=== PATIENT | female | born 1945 | race Caucasian/White ===

== ENCOUNTER 2019-09-10 13:03 | Emergency (ER) | payer OTHER ==
[~2019-09-10] VITALS: Ht 160 cm; Wt 68.0 kg
[2019-09-10] MEDS ORDERED: GLIPIZIDE 10 MG10 MG PO (13:19)
[2019-09-10] MEDS ORDERED: LIPITOR 20 MG T20 M1 PO (13:19)
[2019-09-10 13:46] LABS: ABSOLUTE BASOPHILS 0.1 thou/uL (0.0-0.2); ABSOLUTE EOSINOPHILS 0.2 thou/uL (0.0-0.7); ABSOLUTE LYMPHOCYTES 1.7 thou/uL (0.8-5.3); ABSOLUTE MONOCYTES 0.7 thou/uL (0.0-1.2); BASOPHILS 1.4 %; EOSINOPHILS 2.4 %; HEMATOCRIT 41.6 % (37.0-47.0); HEMOGLOBIN 13.9 gm/dL (12.0-15.0); LYMPHOCYTES 22.5 %; MCH 29.6 pg (26.0-34.0); MCHC 33.4 g/dL (28.0-37.0); MCV 88.6 fL (80.0-100.0); MONOCYTES 8.9 %; MPV 8.9 fl. (7.2-11.1); NUCLEATED RBCS 0 /100WBC; PLATELET COUNT* 303 thou/uL (150-400); POLYS 64.8 %; RBC 4.69 mil/uL (4.20-5.00); RDW-CV 13.4 % (10.5-14.5); WBC 7.8 thou/uL (4.0-11.0)
[2019-09-10 13:54] LABS: CREATININE 1.1 mg/dL (0.6-1.3); POTASSIUM 4.2 mmol/L (3.5-5.1)
[2019-09-10 13:55] LABS: APTT 31.9 Seconds (25.0-31.3); PROTIME 10.2 Seconds (9.20-11.50)
[2019-09-10 13:56] LABS: URINE BILIRUBIN NEGATIVE (Negative); URINE BLOOD NEGATIVE (Negative); URINE CLARITY CLEAR; URINE COLOR YELLOW; URINE GLUCOSE-RANDOM 3+ (Negative); URINE KETONES TRACE (Negative); URINE LEUKOCYTES-REFLEX NEGATIVE (Negative); URINE NITRITE-REFLEX NEGATIVE (Negative); URINE PROTEIN NEGATIVE (Negative); URINE SPECIFIC GRAVITY 1.025 (1.005-1.030); URINE UROBILINOGEN 0.2 E.U./dl (0.2-1.0)
[2019-09-10 14:05] LABS: ALBUMIN 3.1 g/dL (3.4-5.0); TOTAL BILIRUBIN 0.2 mg/dL (<0.1-1.0); TOTAL PROTEIN 7.3 g/dL (6.4-8.2)
[2019-09-10 14:18] VITALS: BP 154/78
--- NOTE | 2019-09-11 08:28 | EKG ---
[place] [address] ELECTROCARDIOGRAM REPORT Name: SHADI MATHEW Room: [facility]#: [id number] Admission: 09/10/19 Attend Phys: Discharge: 09/10/19 Date of : 43 Date of Service: 09/10/19 1315 Report #: [id number] THIS REPORT FOR: //name// [facility] ED Test Date: 2019-09-10 Test Time: 13:15:14 Pat Name: SHADI MATHEW Department: Room: Gender: [employer] Engineer: [place] : 1945 Requested By: Moe Zapata Order Number: [id number] MD: Bryan Gonzales Measurements Intervals [place] Rate: 80 P: 65 WV: 176 QRS: 75 QRSD: 96 T: 99 QT: 365 QTc: 421 Interpretive Statements Sinus rhythm Nonspecific T abnormalities, lateral leads No previous ECG available for comparison Electronically Signed On 09-11-2019 8:26:24 CDT by Bryan Gonzales [email or web address] <ELECTRONICALLY SIGNED> By: Bryan Gonzales MD, [facility] 09/11/19 0826 1315 Bryan Gonzalse MD, FACC /EPI
== END 2019-09-10 14:19 | disposition home or self-care (01) ==
LOC: M.ERS 13:03
PROVIDERS: Family Medicine
DX: R53.1 Weakness (principal); R05 Cough; E11.9 Type 2 diabetes mellitus without complications; Z90.710 Acquired absence of both cervix and uterus; Z91.048 Other nonmedicinal substance allergy status